=== PATIENT | male | born 1985 ===

== ENCOUNTER 2020-09-12 16:16 | Emergency (ER) | payer MEDICAID ==
[~2020-09-12] VITALS: Ht 167.6 cm; Wt 77.3 kg
--- NOTE | 2020-09-12 16:46 | NUR ---
VOMITTED 200 CC BROWNISH CLEAR SECRETIONS.
[2020-09-12] MEDS ORDERED: normal saline 1000ML IV soln IVB ONE (16:50)
[2020-09-12 17:21] LABS: BASOPHILS # (AUTO) 0.1 X10'3 (0-0.2); BASOPHILS % (AUTO) 0.7 % (0-1); EOSINOPHILS # (AUTO) 0.1 X10'3 (0-0.9); EOSINOPHILS % (AUTO) 1.9 % (0-6); HEMATOCRIT 46.2 % (42.0-52.0); LYMPHOCYTES % (AUTO) 13.6 % (21-51); MEAN CORPUSCULAR HEMOGLOBIN 33.1 PG (27.0-31.0); MEAN CORPUSCULAR HGB CONC 34.7 g/dL (33.0-36.5); MEAN CORPUSCULAR VOLUME 95.5 FL (78-98); MEAN PLATELET VOLUME 7.8 FL (7.4-10.4); MONOCYTES # (AUTO) 0.4 X10'3 (0-0.9); MONOCYTES % (AUTO) 5.7 % (2-12); NEUTROPHILS # (AUTO) 5.9 X10'3 (1.8-7.7); NEUTROPHILS % (AUTO) 78.1 % (42-75); PLATELET COUNT 286 X10'3 (140-440); RED BLOOD COUNT 4.83 X10'6 (4.70-6.10); RED CELL DISTRIBUTION WIDTH 14.9 % (11.5-14.5); WHITE BLOOD COUNT 7.6 X10'3 (4.5-11.0)
--- NOTE | 2020-09-12 17:33 | NUR ---
CALLED POISON CONTROL SPOKE WITH GISELA. RECOMMENDS: CMP, CK, HAVE PT STAY 4 HOURS AFTER LAST DOSE OF NARCAN GIVEN. AND DISCUSS SUBOXONE WITH PT. IF PT INTERESTED POISON CONTROL WILL HELPING WITH DOSAGE.
[2020-09-12 17:38] LABS: ALANINE AMINOTRANSFERASE 292 U/L (12-78); ALBUMIN 3.7 G/DL (3.4-5.0); ALBUMIN/GLOBULIN RATIO 1.2 (1.1-1.5); ALKALINE PHOSPHATASE 72 IU/L (46-116); ANION GAP 12 (8-16); ASPARTATE AMINO TRANSFERASE 240 U/L (10-37); BILIRUBIN,TOTAL 0.8 MG/DL (0.1-1.0); BLOOD UREA NITROGEN 14 MG/DL (7-18); BUN/CREATININE RATIO 9.4 (5.4-32.0); CALCIUM 8.3 MG/DL (8.5-10.1); CHLORIDE 104 MMOL/L (99-107); CREATININE 1.49 MG/DL (0.60-1.10); GLUCOSE 189 MG/DL (70-104); POTASSIUM 3.2 MMOL/L (3.5-5.1); SODIUM 141 MMOL/L (135-145); TOTAL CARBON DIOXIDE 24.6 MMOL/L (24-32); TOTAL PROTEIN 6.9 G/DL (6.4-8.2); eGFR 54 ML/MIN
[2020-09-12] MEDS ORDERED: potassium Cl 20 mEq SR tablet PO STA (17:44)
[2020-09-12] MEDS ORDERED: NALO4SPR BOTHNARES (17:57)
--- NOTE | 2020-09-12 17:58 | NUR ---
fluid challenge: pt tolerated 480cc of h20 well.
--- NOTE | 2020-09-12 18:01 | NUR ---
PT HAS A KNIFE IN POSSESSION. SECURITY WAS CALLED AND TAKEN WHILE PT IN HOSPITAL.
[2020-09-12 18:14] LABS: CREATINE KINASE 931 U/L (39-308)
[2020-09-12 19:17] LABS: URINE AMPHETAMINE SCREEN POSITIVE (Neg); URINE BARBITUATE SCREEN NEGATIVE (Neg); URINE BENZODIAZEPINES SCREEN NEGATIVE (Neg); URINE CANNABINOID SCREEN POSITIVE (Neg); URINE COCAINE SCREEN NEGATIVE (Neg); URINE METHADONE SCREEN NEGATIVE (Neg); URINE OPIATE SCREEN NEGATIVE (Neg); URINE PHENCYCLIDINE SCREEN NEGATIVE (Neg)
[2020-09-12 19:18] LABS: CLARITY,URINE CLEAR (Clear); COLOR,URINE YELLOW (Yellow); GLUCOSE, URINE 100 mg/dl (Neg); KETONES,URINE 15 mg/dl (Neg); LEUKOCYTE ESTERASE ,URINE NEGATIVE (Neg); NITRITES, URINE NEGATIVE (Neg); OCCULT BLOOD,URINE NEGATIVE (Neg); PH,URINE 6.5 (4.8-8.0); PROTEIN,URINE 30 mg/dl (Neg)
[2020-09-12 19:19] LABS: UA COLLECTION TYPE CLN CATCH MIDSTREAM
[2020-09-12 19:27] LABS: BACTERIA,URINE NONE SEEN /HPF (Neg); RBC,URINE NONE SEEN /HPF (0-2); WBC,URINE 0-4 /HPF (0-4)
[2020-09-12 19:28] LABS: CAL OXALATE CRYSTALS 1+ /HPF (NEGATIVE); MUCUS STRANDS MANY /LPF (Neg); SQUAMOUS EPITHELIAL CELL,UR NONE SEEN /LPF (FEW)
[2020-09-12 19:29] LABS: AMORPHOUS URATES 1+; HYALINE CASTS 0-3 /LPF (NEGATIVE); SPERM FEW /HPF (NEGATIVE)
[2020-09-12 20:57] VITALS: BP 119/81
== END 2020-09-12 21:10 | disposition home or self-care (01) ==
LOC: ER 16:17
DX: R74.01 Elevation of levels of liver transaminase levels (principal); T40.601A Poisoning by unspecified narcotics, accidental (unintentional), initial encounter; F17.200 Nicotine dependence, unspecified, uncomplicated; F12.90 Cannabis use, unspecified, uncomplicated; F15.90 Other stimulant use, unspecified, uncomplicated; F11.90 Opioid use, unspecified, uncomplicated; Z72.89 Other problems related to lifestyle; Z79.899 Other long term (current) drug therapy; Y92.89 Other specified places as the place of occurrence of the external cause
CPT/HCPCS: 36415; 80053; 80305; 81001; 82550; 85025; 93005; 96360; 96361; 99285; J7030